=== PATIENT | male | born 1980 | race Caucasian/White ===

== ENCOUNTER 2016-12-02 17:34 | Emergency (ER) | payer MEDICAID ==
[2016-12-02] MEDS ORDERED: RIVAROXABAN 15 MG TABLET PO STA (19:32)
--- NOTE | 2016-12-02 19:45 | ED Physician Documentation ---
History of Present Illness - Stated complaint Stated Complaint: R LEG PX - Chief complaint Chief Complaint: Ext Problem - History obtained from History obtained from: Patient, Family - History of Present Illness Timing: How many weeks ago (2-3) Pain level max: 5 Pain level now: 5 - Additonal information Additional information: States relapsed a few weeks ago and was using heroin. Has not used for a few weeks. 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 Patient now has increased swelling and pain to the right lower extremity. This is been present for 2-3 weeks. Nothing makes it better. Worse with movement. Review of Systems Constitutional: denies: Fever Nose: denies: Rhinorrhea / runny nose, Congestion Throat: denies: Sore throat Cardiac: denies: Chest pain / pressure, Palpitations Respiratory: denies: Cough GI: denies: Abdominal Pain, Nausea, Vomiting, Diarrhea, Hematemesis, Bloody / black stool Skin: denies: Rash Musculoskeletal: denies: Neck pain, Back pain Neurologic: denies: Headache PD PAST MEDICAL HISTORY - Past Medical History Past Medical History: Yes Cardiovascular: None Respiratory: None Neuro: None Endocrine/Autoimmune: None GI: None : None HEENT: None Psych: Depression Musculoskeletal: None Derm: None - Past Surgical History Past Surgical History: Yes Ortho: Rotator cuff repair - Present Medications Home Medications: Ambulatory Orders Medication Instructions Recorded Confirmed Methadone 70 mg PO DAILY 12/02/16 12/02/16 Rivaroxaban [Xarelto] 1 each PO ONCE #1 tab.ds.pk 12/02/16 - Allergies Allergies/Adverse Reactions: Allergies Allergy/AdvReac Type Severity Reaction Status Date / Time No Known Drug Allergies Allergy Verified 06/27/16 21:39 - Social History Does the pt smoke?: Yes Smoking Status: Current every day smoker Does the pt drink ETOH?: No Does the pt have substance abuse?: Yes - Immunizations Immunizations are current?: No - POLST Patient has POLST: No PD ED PE NORMAL - Vitals Vital signs reviewed: Yes - General General: Alert and oriented X 3, No acute distress - HEENT HEENT: Moist mucous membranes - Neck Neck: Supple, no meningeal sign - Cardiac Cardiac: RRR, Strong equal pulses - Respiratory Respiratory: No respiratory distress, Clear bilaterally - Abdomen Abdomen: Soft, Non tender - Derm Derm: Warm and dry - Extremities Extremities: Other (Diffuse swelling to the right lower extremity. Significantly swollen compared to the left. No erythema. No warmth. No skin changes.) - Neuro Neuro: Alert and oriented X 3 Results - Vitals Vitals: Vital Signs - 24 hr 12/02/16 12/02/16 17:40 19:56 Temperature 37.0 C Heart Rate 107 H 95 Respiratory 20 20 Rate Blood Pressure 126/84 H 137/82 H O2 Saturation 100 97 Oxygen O2 Source Room air - Rads (name of study) Duplex ultrasound right lower extremity Radiology: Prelim report reviewed, EMP read contemporaneously, See rad report ( Extensive occlusive thrombus extending from the right common femoral through the superficial and deep femoral and popliteal veins. ) PD MEDICAL DECISION MAKING - ED course Complexity details: reviewed results, re-evaluated patient, considered differential, d/w patient, d/w family ED course: Patient with an extensive DVT of the right lower extremity. Will start the patient on Xarelto and have him follow-up with his doctor. No chest pain. No hypoxia. No evidence of infection. No fevers. Patient and family were counseled at length regarding the need for close follow-up, risks of bleeding while being on Xarelto without a reversal agent. He had been on Coumadin in the past with Lovenox. He prefers the Xarelto at this time. Patient and family counseled regarding signs and symptoms for which I believe and urgent re- evaluation would be necessary. Patient with good understanding of and agreement to plan and is comfortable going home at this time This document was made in part using voice recognition software. While efforts are made to proofread this document, sound alike and grammatical errors may occur. Departure - Departure Disposition: 01 Home, Self Care Clinical Impression: DVT (deep venous thrombosis) Qualifiers: DVT location: lower extremity Affected thrombotic vein of extremity: unspecified lower extremity distal vein Laterality: right Chronicity: acute Qualified Code(s): I82.4Z1 - Acute embolism and thrombosis of unspecified deep veins of right distal lower extremity Condition: Good Instructions: ED DVT Follow-Up: [facility] [Provider Group] - Within 1 week Prescriptions: Rivaroxaban [Xarelto] 1 each PO ONCE #1 tab.ds.pk Comments: He will be on the Xarelto 15 mg by mouth twice daily for 21 days, then 20 mg by mouth daily. It is important that you follow-up with the [facility] as she will likely need to be on this longer than can be prescribed today. You also will likely need follow-up ultrasounds to ensure that the DVT is improving. Return if you worsen. You also need to be seen if you notice blood in your stool or from the rectum. You also need to be seen right away if you strike your head as even a minor head injury could cause bleeding inside of your brain. As we discussed, the downside of this medication is that there is no specified reversal agent for its anticoagulant effects. Discharge Date/Time: 12/02/16 19:56
[2016-12-02 20:00] VITALS: BP 137/82
--- NOTE | 2016-12-02 20:17 | Ultrasound Report ---
EXAM: RIGHT LOWER EXTREMITY VENOUS ULTRASOUND EXAM DATE: 12/02/2016 06:57 PM. CLINICAL HISTORY: Right lower extremity swelling. COMPARISON: None. TECHNIQUE: Real-time sonographic vascular imaging was performed by the repairer resistance welding machines through the lower extremity utilizing both color-flow and Doppler spectral analysis. Multiple insurance sales representative static nandini ges were saved for review. FINDINGS: Common Femoral Vein (CFV): Occlusive thrombus. CFV-GSV Junction: Occlusive thrombus. Greater saphenous vein appears thrombosed. Profunda Femoral Vein (PFV): Occlusive thrombus. Femoral Vein (FV) Prox: Occlusive thrombus. Femoral Vein (FV) Mid: Occlusive thrombus. Femoral Vein (FV) Dist: Occlusive thrombus. Popliteal Vein: Occlusive thrombus. Posterior Tibial Veins: Normal. Peroneal Veins: Normal. Contralateral Side CFV: Normal. Other: None. IMPRESSION: Extensive occlusive thrombus extending from the right common femoral through the superficial and deep femoral and popliteal veins. RADIA The above critical findings were discussed with rey Aguiar by Dr. Flory Frost at 19:25 hrs on 12/02/16. Referring Provider Line: [phone] SITE ID: [id number]
== END 2016-12-02 19:56 | disposition home or self-care (01) ==
LOC: ED 17:34
DX: I82.411 Acute embolism and thrombosis of right femoral vein (principal); I82.431 Acute embolism and thrombosis of right popliteal vein; Z86.718 Personal history of other venous thrombosis and embolism; F11.10 Opioid abuse, uncomplicated; F17.200 Nicotine dependence, unspecified, uncomplicated
CPT/HCPCS: 93971; 99283; 99284; A9270

== ENCOUNTER 2017-07-12 16:16 | Emergency (ER) | payer MEDICAID ==
[2017-07-12] MEDS ORDERED: RIVAROXABAN 15 MG TABLET PO STA (18:33)
--- NOTE | 2017-07-12 18:39 | ED Physician Documentation ---
History of Present Illness - Stated complaint Stated Complaint: LEG PX - Chief complaint Chief Complaint: Ext Problem - History obtained from History obtained from: Patient - History of Present Illness Timing: Other (6 months) Pain level max: 3 Pain level now: 3 Improved by: nothing Worsened by: walking - Additonal information Additional information: Patient is a 37-year-old male who presents to the emergency department with continued left lower extremity pain and swelling. He was diagnosed with a DVT in December of this last year, lost insurance and was unable to continue his anticoagulation. He has now regained insurance and is looking to be restarted on anticoagulation. Does have a primary care provider now. Review of Systems Constitutional: denies: Fever, Chills Cardiac: denies: Chest pain / pressure, Palpitations Respiratory: denies: Dyspnea, Cough Musculoskeletal: denies: Neck pain, Back pain Neurologic: denies: Headache PD PAST MEDICAL HISTORY - Past Medical History Cardiovascular: None Respiratory: None Neuro: None Endocrine/Autoimmune: None GI: None : None HEENT: None Psych: Depression Musculoskeletal: None Derm: None - Past Surgical History Past Surgical History: Yes Ortho: Rotator cuff repair - Present Medications Home Medications: Ambulatory Orders Medication Instructions Recorded Confirmed Methadone 70 mg PO DAILY 12/02/16 07/12/17 Rivaroxaban [Xarelto] 1 each PO ONCE #1 tab.ds.pk 12/02/16 Rivaroxaban [Xarelto] 15 mg PO BID #42 tablet 07/12/17 Rivaroxaban [Xarelto] 20 mg PO DAILY #30 tablet 07/12/17 - Allergies Allergies/Adverse Reactions: Allergies Allergy/AdvReac Type Severity Reaction Status Date / Time No Known Drug Allergies Allergy Verified 07/12/17 16:31 - Social History Does the pt smoke?: Yes Smoking Status: Current every day smoker Does the pt drink ETOH?: No Does the pt have substance abuse?: Yes - Immunizations Immunizations are current?: No - POLST Patient has POLST: No PD ED PE NORMAL - Vitals Vital signs reviewed: Yes - General General: Alert and oriented X 3, No acute distress - Neck Neck: Supple, no meningeal sign - Cardiac Cardiac: RRR - Respiratory Respiratory: No respiratory distress, Clear bilaterally - Abdomen Abdomen: Soft, Non tender, Non distended - Derm Derm: Warm and dry - Extremities Extremities: Other (TTP diffusely over the LLE. Mild swelling. NVI. No skin changes. ) - Neuro Neuro: Alert and oriented X 3 - Psych Psych: Normal mood, Normal affect Results - Vitals Vitals: Vital Signs - 24 hr 07/12/17 07/12/17 16:28 18:47 Temperature 36.5 C Heart Rate 94 72 Respiratory 16 18 Rate Blood Pressure 98/67 118/88 H O2 Saturation 99 97 Oxygen O2 Source Room air - Rads (name of study) LLE duplex US Radiology: Prelim report reviewed, EMP read contemporaneously, See rad report ( Extensive near occlusive thrombus involving the left external iliac, superficial femoral, common femoral and popliteal veins. Poor visualization of the posterior tibial and peroneal veins. Profunda and greater saphenous veins are either not seen or poorly seen. ) PD MEDICAL DECISION MAKING - ED course Complexity details: reviewed results, re-evaluated patient, considered differential, d/w patient ED course: Patient is a 37-year-old male who presents the emergency department with a recurrent left lower extremity DVT. Will start him back on Xarelto. No evidence of pulmonary embolus. No evidence of infection. Patient counseled regarding signs and symptoms for which I believe and urgent re-evaluation would be necessary. Patient with good understanding of and agreement to plan and is comfortable going home at this time This document was made in part using voice recognition software. While efforts are made to proofread this document, sound alike and grammatical errors may occur. Departure - Departure Disposition: 01 Home, Self Care Clinical Impression: DVT (deep venous thrombosis) Qualifiers: DVT location: lower extremity Affected thrombotic vein of extremity: femoral Chronicity: chronic Laterality: left Qualified Code(s): I82.512 - Chronic embolism and thrombosis of left femoral vein Condition: Good Instructions: ED DVT Follow-Up: Jeniffer Luna ARNP [Primary Care Provider] - Within 1 week Prescriptions: Rivaroxaban [Xarelto] 15 mg PO BID #42 tablet Rivaroxaban [Xarelto] 20 mg PO DAILY #30 tablet Comments: You will likely need to be on xarelto for at least 6 months. The exact length will be up to your doctor. Return if you worsen, hit your head or are involved in any trauma as your are at higher risk for bleeding complications. Discharge Date/Time: 07/12/17 18:48
[2017-07-12 18:48] VITALS: BP 118/88
--- NOTE | 2017-07-12 18:56 | Ultrasound Preliminary Report ---
Exam: US DUPLEX EXT VEINS LEFT IMPRESSION: 1. Extensive near occlusive thrombus involving the left external and common superficial femoral, comm on femoral and popliteal veins. 2. Poor visualization of the posterior tibial and peroneal veins. Profunda and greater saphenous vein s are not seen or poorly seen. RADIA The above critical findings were discussed with Cosme by Dr. Flory Frost at 18:54 hrs on 07/12. SITE ID: [id number]
--- NOTE | 2017-07-12 19:20 | Ultrasound Report ---
EXAM: LEFT LOWER EXTREMITY VENOUS ULTRASOUND EXAM DATE: 07/12/2017 06:30 PM. CLINICAL HISTORY: LLE swelling, pain, history of DVT. COMPARISON: None. TECHNIQUE: Real-time sonographic vascular imaging was performed by the fur designer through the lower extremity utilizing both color-flow and Doppler spectral analysis. Multiple commercial sales representative static nandini ges were saved for review. FINDINGS: Common Femoral Vein (CFV): Occlusive thrombus. CFV-GSV Junction: No extension of thrombus into the greater saphenous vein noted. Profunda Femoral Vein (PFV): Not seen. Femoral Vein (FV) Prox: Near occlusive thrombus. Femoral Vein (FV) Mid: Near occlusive thrombus. Femoral Vein (FV) Dist: Near occlusive thrombus. Popliteal Vein: Near occlusive thrombus. Posterior Tibial Veins: Poorly seen. Peroneal Veins: Poorly seen. Contralateral Side CFV: Normal. Other: Left common iliac vein is obscured by bowel gas. IVC is not seen well. Near occlusive thrombus of the left external iliac vein. IMPRESSION: 1. Extensive near occlusive thrombus involving the left external iliac, superficial femoral, common f emoral and popliteal veins. 2. Poor visualization of the posterior tibial and peroneal veins. Profunda and greater saphenous vein s are either not seen or poorly seen. RADIA The above critical findings were discussed with Cosme by Dr. Flory Frost at 18:54 hrs on 07/12. Referring Provider Line: [phone] SITE ID: [id number]
== END 2017-07-12 18:48 | disposition home or self-care (01) ==
LOC: ED 16:16
DX: I82.512 Chronic embolism and thrombosis of left femoral vein (principal); I82.522 Chronic embolism and thrombosis of left iliac vein; I82.532 Chronic embolism and thrombosis of left popliteal vein; Z79.01 Long term (current) use of anticoagulants; F17.200 Nicotine dependence, unspecified, uncomplicated
CPT/HCPCS: 93971; 99283; A9270

== ENCOUNTER 2020-02-18 21:25 | Emergency (ER) | payer MEDICAID ==
[2020-02-18 21:49] LABS: BILIRUBIN,URINE NEGATIVE (NEGATIVE); CLARITY,URINE CLEAR (CLEAR); GLUCOSE, URINE (UA) NEGATIVE (NEGATIVE); KETONES,URINE (UA) NEGATIVE (NEGATIVE); LEUKOCYTE ESTERASE, URINE NEGATIVE (NEGATIVE); NITRITE,URINE NEGATIVE (NEGATIVE); OCCULT BLOOD,URINE TRACE-INTA (NEGATIVE); PROTEIN,URINE NEGATIVE (NEGATIVE); UROBILINOGEN,URINE 0.2 (NORMAL) E.U./dL (NORMAL)
--- NOTE | 2020-02-18 23:05 | ED Physician Documentation ---
History of Present Illness - Stated complaint Stated Complaint: MALE - Chief complaint Chief Complaint: General - History obtained from History obtained from: Patient - History of Present Illness Timing: How many days ago (2-3) Improved by: nothing Worsened by: urinating - Additonal information Additional information: c/o 2-3 days of burning dysuria, penile discharge. also has milder burning pain even when not urinating, suprapubic Review of Systems Constitutional: denies: Fever : reports: Dysuria, Discharge PD PAST MEDICAL HISTORY - Past Medical History Past Medical History: No Cardiovascular: None Respiratory: None Neuro: None Endocrine/Autoimmune: None GI: None : None HEENT: None Psych: Depression Musculoskeletal: None Derm: None - Past Surgical History Past Surgical History: Yes Ortho: Rotator cuff repair - Present Medications Home Medications: Ambulatory Orders Medication Instructions Recorded Confirmed Methadone 70 mg PO DAILY 12/02/16 07/12/17 Rivaroxaban [Xarelto] 1 each PO ONCE #1 tab.ds.pk 12/02/16 Rivaroxaban [Xarelto] 15 mg PO BID #42 tablet 07/12/17 Rivaroxaban [Xarelto] 20 mg PO DAILY #30 tablet 07/12/17 - Allergies Allergies/Adverse Reactions: Allergies Allergy/AdvReac Type Severity Reaction Status Date / Time No Known Drug Allergies Allergy Verified 02/18/20 21:37 - Social History Does the pt smoke?: No Smoking Status: Never smoker Does the pt drink ETOH?: No Does the pt have substance abuse?: Yes - Immunizations Immunizations are current?: No - POLST Patient has POLST: No PD ED PE NORMAL - Vitals Vital signs reviewed: Yes - General General: Alert and oriented X 3, No acute distress, Well developed/nourished - Abdomen Abdomen: Soft, Non tender - Back Back: No CVA TTP Results - Vitals Vitals: Oxygen O2 Source Room air - Labs Labs: Laboratory Tests 02/18/20 02/18/20 21:35 21:35 Urine Color DARK YELLOW Urine Clarity CLEAR Urine pH 6.0 Ur Specific [place] 1.025 Urine Protein NEGATIVE Urine Glucose (UA) NEGATIVE Urine Ketones NEGATIVE Urine Occult Blood TRACE-INTA Urine Nitrite NEGATIVE Urine Bilirubin NEGATIVE Urine Urobilinogen 0.2 (NORMAL) Ur Leukocyte Esterase NEGATIVE Ur Microscopic Review NOT INDICATED Urine Culture Comments NOT INDICATED Chlam trachomat DNA PCR NEGATIVE N.gonorrhoeae DNA (PCR) NEGATIVE T. vaginalis (PCR) NEGATIVE PD MEDICAL DECISION MAKING - ED course Complexity details: reviewed results, considered differential, d/w patient ED course: c/o dysuria and penile discharge x 2-3 days. he feels these symptoms are similar to previous STD and prefers empiric treatment at this time. Departure - Departure Disposition: 01 Home, Self Care Clinical Impression: Urethritis Condition: Good Instructions: ED Urethritis Infec Vs Inflam Male Discharge Date/Time: 02/18/20 23:44
[2020-02-18] MEDS ORDERED: AZITHROMYCIN 250 MG TABLET PO STA (23:14)
[2020-02-18] MEDS ORDERED: LIDOCAINE 1% 2 ML VIAL MC ONE (23:14)
[2020-02-18] MEDS ORDERED: cefTRIAXone 250 MG VIAL IM STA (23:14)
[2020-02-18 23:33] VITALS: BP 154/95
[2020-02-19 19:53] LABS: TRICHOMONAS VAGINALIS DNA NEGATIVE (NEGATIVE)
== END 2020-02-18 23:44 | disposition home or self-care (01) ==
LOC: ED 21:25
DX: N34.2 Other urethritis (principal)
CPT/HCPCS: 81003; 87491; 87591; 87661; 96372; 99283; A9270; 81001; 87086

== ENCOUNTER 2020-03-12 12:50 | Outpatient (CLI) | payer MEDICAID ==
[2020-03-12 15:19] LABS: BILIRUBIN,URINE NEGATIVE (NEGATIVE); GLUCOSE, URINE (UA) NEGATIVE (NEGATIVE); KETONES,URINE (UA) NEGATIVE (NEGATIVE); LEUKOCYTE ESTERASE, URINE NEGATIVE (NEGATIVE); NITRITE,URINE NEGATIVE (NEGATIVE); OCCULT BLOOD,URINE NEGATIVE (NEGATIVE); PH,URINE 6.5 PH (5.0-7.5); PROTEIN,URINE NEGATIVE (NEGATIVE); UROBILINOGEN,URINE 0.2 (NORMAL) E.U./dL (NORMAL)
[2020-03-12 15:26] LABS: AMORPHOUS SEDIMENT,UR Marked /LPF; BACTERIA,URINE None Seen /HPF (None Seen); CLARITY,URINE CLOUDY (CLEAR); RBC,URINE None Seen /HPF (0-5); SQUAMOUS EPITHELIAL CELL,UR NONE SEEN (<= Few)
== END 2020-03-12 23:59 | disposition home or self-care (01) ==
LOC: LAB.R 12:50
PROVIDERS: ATTEND Physician Assistant Medical
DX: N34.1 Nonspecific urethritis (principal); R30.0 Dysuria
CPT/HCPCS: 81001; 87086

== ENCOUNTER 2020-03-17 07:00 | Outpatient (CLI) | payer MEDICAID | END 2020-03-17 23:59 | disposition home or self-care (01) | LOC: LAB.R 07:00 | PROVIDERS: ATTEND Physician Assistant | DX: N34.1 Nonspecific urethritis (principal); R30.0 Dysuria | CPT/HCPCS: 87491; 87591; 87661 ==

== ENCOUNTER 2020-05-01 00:03 | Observation (INO) | payer MEDICAID ==
[2020-05-01] MEDS ORDERED: ONDANSETRON 4 MG/2 ML VIAL IVP STA (00:22)
[2020-05-01] MEDS ORDERED: FOLIC ACID INJ 1 MG, THIAMINE INJ 100 MG, MAGNESIUM SULFATE 2 GM, MULTIVITAMIN 10 ML in... IV STA ×5 (00:22)
--- NOTE | 2020-05-01 00:24 | ED Physician Documentation ---
History of Present Illness - Stated complaint Stated Complaint: DETOX ETOH/VOMITING - Chief complaint Chief Complaint: Abd Pain - History obtained from History obtained from: Patient - Additonal information Additional information: Patient comes emergency department complaining of vomiting after quitting drinking about 5 hours ago. Patient states he was starting to feel nauseated and has not been able to hold anything down since that time. Patient states that he did wish to quit drinking, but that he is concerned because his fingers are cramping up and he has not been able to stop vomiting. Patient states he normally drinks about a gallon of hard liquor every day and has been doing so for the last year. Patient states he is no longer abusing heroin or any other opioids/narcotics. He states he is otherwise healthy as far as he knows. No fever or chills. No abdominal pain. No other complaints at this time. Review of Systems Ten Systems: 10 systems reviewed and negative Constitutional: reports: Reviewed and negative Eyes: reports: Reviewed and negative Ears: reports: Reviewed and negative Nose: reports: Reviewed and negative Throat: reports: Reviewed and negative Cardiac: reports: Reviewed and negative Respiratory: reports: Reviewed and negative GI: reports: Nausea, Vomiting : reports: Reviewed and negative Skin: reports: Reviewed and negative Musculoskeletal: reports: Reviewed and negative Neurologic: reports: Reviewed and negative Psychiatric: reports: Reviewed and negative Endocrine: reports: Reviewed and negative Immunocompromised: reports: Reviewed and negative PD PAST MEDICAL HISTORY - Past Medical History Cardiovascular: None Respiratory: None Neuro: None Endocrine/Autoimmune: None GI: None : None HEENT: None Psych: Depression Musculoskeletal: None Derm: None - Past Surgical History Past Surgical History: Yes Ortho: Rotator cuff repair - Present Medications Home Medications: Ambulatory Orders Medication Instructions Recorded Confirmed Bupropion HCl [Bupropion Xl] 300 mg PO DAILY 05/01/20 05/01/20 Ibuprofen [Ibu-200] 2 - 3 tab PO Q6H PRN 05/01/20 05/01/20 LORazepam [Ativan] 1 mg PO TID PRN #9 tablet 05/02/20 Pnv No.95/Ferrous Fum/Folic AC 1 each PO DAILY #30 tablet 05/02/20 [ Formula] Thiamine [Vitamin B-1] 100 mg PO DAILY #30 tablet 05/02/20 - Allergies Allergies/Adverse Reactions: Allergies Allergy/AdvReac Type Severity Reaction Status Date / Time No Known Drug Allergies Allergy Verified 05/01/20 00:15 - Social History Does the pt smoke?: No Smoking Status: Never smoker Does the pt drink ETOH?: No Does the pt have substance abuse?: Yes - Immunizations Immunizations are current?: No - POLST Patient has POLST: No PD ED PE NORMAL - Vitals Vital signs reviewed: Yes - General General: Alert and oriented X 3, Well developed/nourished, Other (Patient is anxious and appears uncomfortable, otherwise no apparent distress) - HEENT HEENT: Atraumatic, PERRL, EOMI, Moist mucous membranes - Neck Neck: Supple, no meningeal sign - Cardiac Cardiac: RRR, No murmur, Strong equal pulses - Respiratory Respiratory: No respiratory distress, Clear bilaterally - Abdomen Abdomen: Soft, Non tender, Non distended - Derm Derm: Normal color, No rash, Other (Mild diaphoresis) - Extremities Extremities: No deformity, No edema, No calf tenderness / cord - Neuro Neuro: Alert and oriented X 3, Other (Not clinically intoxicated; grossly normal) - Psych Psych: Normal mood, Normal affect Results - Vitals Vitals: Oxygen O2 Source Room air - Labs Labs: Laboratory Tests 05/01/20 05/01/20 00:35 00:59 WBC 6.6 RBC 4.89 Hgb 15.0 Hct 43.9 MCV 89.8 MCH 30.7 MCHC 34.2 RDW 16.4 H Plt Count 339 MPV 9.4 Neut # (Auto) 5.3 Lymph # (Auto) 0.7 L [place] # (Auto) 0.5 Eos # (Auto) 0.1 Baso # (Auto) 0.1 Absolute Nucleated RBC 0.00 Nucleated RBC % 0.0 Sodium 136 Potassium 3.1 L Chloride 95 L Carbon Dioxide 24 Anion Gap 17.0 H BUN 6 Creatinine 0.7 Estimated GFR (MDRD) 125 Glucose 110 H Calcium 8.7 Total Bilirubin 1.7 H AST 108 H ALT 55 Alkaline Phosphatase 128 H Total Protein 7.6 Albumin 4.1 Globulin 3.5 Albumin/Globulin Ratio 1.2 Lipase 49 Ethyl Alcohol 25.8 PD MEDICAL DECISION MAKING - ED course Complexity details: reviewed results, re-evaluated patient, considered differential, d/w patient ED course: The patient was given a liter of banana bag and a dose of Zofran initially. He was worked up with labs, including EtOH level. The pt's EtOH level was low, and the pt's CIWA score was increasing steadily, now to 20. Pt was treated with Ativan, but continued to have a CIWA of 17, so he was then given phenobarbital 260 mg. This did improve the pt's sx, but he was still tachycardic and began vomiting again, and I felt that he was not going to be able to go home in this condition, especially given his heavy alcohol abuse and risk of severe withdrawal. I spoke with Dr. Cardoza, who was on-call for hospitalist service, and he did agree to admit the pt to his service. Departure - Departure Disposition: ED Place in Observation Clinical Impression: Alcohol withdrawal Qualifiers: Complication of substance-induced condition: with unspecified complication Qualified Code(s): F10.239 - Alcohol dependence with withdrawal, unspecified Condition: Fair Discharge Date/Time: 05/01/20 04:56
[2020-05-01 00:47] LABS: BASOPHILS # (AUTO) 0.1 10^3/uL (0.0-0.1); BASOPHILS % (AUTO) 1.2 %; EOSINOPHILS # (AUTO) 0.1 10^3/uL (0.0-0.7); EOSINOPHILS % (AUTO) 1.8 %; LYMPHOCYTES # (AUTO) 0.7 10^3/uL (1.5-3.5); MEAN CORPUSCULAR HEMOGLOBIN 30.7 pg (27.0-31.0); MEAN CORPUSCULAR HGB CONC 34.2 g/dL (32.0-36.0); MEAN CORPUSCULAR VOLUME 89.8 fL (80.0-94.0); MEAN PLATELET VOLUME 9.4 fL (7.4-11.4); MONOCYTES # (AUTO) 0.5 10^3/uL (0.0-1.0); MONOCYTES % (AUTO) 7.2 %; NEUTROPHILS # (AUTO) 5.3 10^3/uL (1.5-6.6); NEUTROPHILS % (AUTO) 79.5 %; PLT - PLATELET COUNT 339 10^3/uL (130-450); RED BLOOD COUNT 4.89 10^6/uL (4.70-6.10); RED CELL DISTRIBUTION WIDTH 16.4 % (12.0-15.0); WHITE BLOOD COUNT 6.6 x10^3/uL (4.8-10.8)
[2020-05-01] MEDS ORDERED: MAGNESIUM SULFATE 1 GM/2 ML VIAL ONE (00:47)
[2020-05-01] MEDS ORDERED: THIAMINE 100 MG/1 ML 2 ML MDV ONE (00:47)
[2020-05-01] MEDS ORDERED: FOLIC ACID 5 MG/1 ML 10ML MDV ONE (00:47)
[2020-05-01 01:14] LABS: ALBUMIN 4.1 g/dL (3.2-5.5); ALBUMIN/GLOBULIN RATIO 1.2 (1.0-2.2); BILIRUBIN,TOTAL 1.7 mg/dL (0.2-1.0); CALCIUM 8.7 mg/dL (8.5-10.3); CREATININE 0.7 mg/dL (0.6-1.2); TOTAL PROTEIN 7.6 g/dL (6.7-8.2)
[2020-05-01] MEDS ORDERED: LORazepam 2 MG/ML VIAL IVP STA ×2 (01:23→03:42)
[2020-05-01] MEDS ORDERED: LORazepam 2 MG/ML VIAL ONE (01:34)
[2020-05-01] MEDS ORDERED: PROMETHAZINE INJ 25 MG in SODIUM CHLORIDE 0.9% 50 ML IV STA (02:26)
[2020-05-01] MEDS ORDERED: PHENobarbital 65 MG/ML VIAL IV STA (02:26)
[2020-05-01] MEDS ORDERED: SODIUM CHLORIDE 0.9% 1,000 ML IV STA (02:27)
[2020-05-01] MEDS ORDERED: PROMETHAZINE 25 MG/1 ML VIAL ONE (02:43)
[2020-05-01] MEDS ORDERED: PROCHLORPERAZINE 10 MG/2 ML VIAL IVP PRN (03:58)
[2020-05-01] MEDS ORDERED: ACETAMINOPHEN 325 MG TABLET PO PRN (03:58)
--- NOTE | 2020-05-01 04:07 | HISTORY & PHYSICAL EXAMINATION ---
Chief Complaint - Chief Complaint Chief Complaint: Alcohol History of Present Illness - Admitted From Admitted From:: Home - History Obtained From Records Reviewed: Yes History obtained from: Patient, ER Physician, EMR - History of Present Illness HPI Comment/Other: This is a 40-year-old male with a past medical history significant for DVT previously treated with Xarelto, alcohol abuse who presents today due to concerns for alcohol withdrawal. He states he has been drinking daily for the past 10 years and over the past 3 years is making 1/5 of liquor every night. For the past few months he has increased this to half a gallon of liquor every day. He wants to quit and so he has been attempting to taper himself off over the past few weeks but has developed nausea and vomiting. He became concerned last night when he thought he might be having a stroke as his hands became contracted for a brief period of time. His last alcoholic beverage was around 8 PM last night. He vomited immediately after. He reports no blood. He denies any abdominal pain, fevers. He does report some chills. He complains of a sore throat due to the retching. He complains of feeling tremulous. He would like to quit alcohol. He currently does not take any medications. He states he completed treatment of his Xarelto for the DVT. He was followed by hematology on outpatient basis at [facility] in [place]. He reports no chest pain, dyspnea. He does also complain of a rash over his upper extremities that began a few days ago. He denies any new medications. He thinks it may be the new laundry detergent his sister used when she did laundry a few days ago. In the emergency department, he was initially found to be afebrile with temperature of 36.3 C. He was initially tachycardic with a heart rate of 121. This improved to the 90s after IV fluids. His blood pressure is elevated at 152/111. He was not tachypneic and was saturating well on room air. Labs are significant for potassium of 3.1, total bilirubin 1.7, AST of 108. His alcohol level was 25.8. He was given phenobarbital, multiple doses of Ativan, and a banana bag in the emergency department. Due to an elevated CIWA score and ongoing nausea and vomiting, medicine was consulted for admission. History - Past Medical History Cardiovascular: reports: Deep vein thrombosis Respiratory: reports: None Neuro: reports: None Endocrine/Autoimmune: reports: None GI: reports: None : reports: None HEENT: reports: None Psych: reports: Depression Musculoskeletal: reports: None Derm: reports: None MRSA Hx?: No - Past Surgical History Ortho: reports: Rotator cuff repair (Right shoulder) - Family & Social History Family History Comment/Other: Reports his father has diabetes. His mother is healthy. Living arrangement: At home Living Situation: With family Social History Notes: He lives at home with his parents. He has been doing alcohol on a daily basis for the past 10 years. He reports a prior history of s ignificant marijuana use but denies this at this time. He reports no heroin, methamphetamine, cocaine use. 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 - POLST Patient has POLST: No Meds/Allgy - Allergies Allergies/Adverse Reactions: Allergies Allergy/AdvReac Type Severity Reaction Status Date / Time No Known Drug Allergies Allergy Verified 05/01/20 00:15 Review of Systems - Constitutional Constitutional: reports: Fatigue, Chills, Malaise, Weakness, Poor appetite. denies: Fever - Eyes Eyes: denies: Blurred vision - Ears, Nose & Throat Ears, Nose & Throat: reports: Sore throat, Hoarseness. denies: Nasal discharge, Postnasal drainage - Cardiovascular Cariovascular: reports: Lightheadedness. denies: Chest pain, Edema, Exertional dyspnea, Decr. exercise tolerance - Respiratory Respiratory: denies: Cough, SOB at rest, SOB with exertion - Gastrointestinal Gastrointestinal: reports: Nausea, Vomiting, Reflux/heartburn, Poor appetite. denies: Abdominal pain, Black stools, Bloody stools, Coffee grounds emesis - Genitourinary Genitourinary: denies: Dysuria, Frequency, Hematuria - Musculoskeletal Musculoskeletal: reports: Muscle weakness. denies: Muscle pain - Integumentary Integumentary: reports: Rash - Neurological Neurological: reports: General weakness, Dizziness. denies: Focal weakness - Hematologic/Lymphatic Hematologic/Lymphatic: reports: Blood clots. denies: Bleeding tendencies - All Other Systems All Other Systems: reports: Reviewed and negative Prior Level of Functionality: He is independent with ADLs. Exam - Vital Signs Reviewed Vital Signs: Yes Vital Signs: Vital Signs x48h Temp Pulse Resp BP Pulse Ox 10/16/20 03:03 100 16 124/85 H 96 05/01/20 01:38 88 16 143/99 H 95 05/01/20 00:51 90 20 154/97 H 97 05/01/20 00:05 36.3 C L 121 H 20 152/111 H 97 - Physical Exam General Appearance: positive: Alert, Mild distress Eyes Bilateral: positive: Normal inspection, Conjunctivae nml ENT: positive: ENT inspection nml, Pharynx nml. negative: Pharyngeal erythema Neck: positive: Nml inspection Respiratory: positive: No respiratory distress. negative: Wheezes, Rales Cardiovascular: positive: No murmur, Tachycardia. negative: Bradycardia, Systolic murmur Abdomen: positive: Non-tender, No distention. negative: Tenderness, Guarding, Rebound Skin: positive: Warm, Dry, Skin rash (He has a blanching maculopapular rash located over his chest, abdomen and back.). negative: No rash Extremities: positive: No pedal edema Neurologic/Psychiatric: positive: Oriented x3, Motor nml, Other (He has a mild tremor in both of his upper extremities.). negative: Disoriented to person, Disoriented to place, Disoriented to time Conclusion/Plan - Problem List (1) Alcohol withdrawal Conclusion/Plan: He does have evidence of withdrawal given he is tremulous, tachycardic, hypertensive. He is not diaphoretic. His URI has improved after receiving phenobarbital and Ativan in the emergency department. His last drink was yesterday evening. Given his gastritis and inconsistent ability to take oral intake, we will place him in observation for continued treatment of his alcohol withdrawal. Continue with Ativan as needed. [facility] protocol. Banana bag. So cial work consult. Qualifiers: Complication of substance-induced condition: with unspecified complication Qualified Code(s): F10.239 - Alcohol dependence with withdrawal, unspecified (2) Alcoholic gastritis Conclusion/Plan: This is likely secondary to his alcohol abuse. He continues have some nausea and vomiting and has required multiple antiemetics emergency department. We will place him on a clear liquid diet and Protonix IV. Continue with IV fluids. No need for endoscopy at this time unless he develops hematemesis. Qualifiers: Chronicity: acute Gastritis bleeding: without bleeding Qualified Code(s): K29.20 - Alcoholic gastritis without bleeding (3) Rash Conclusion/Plan: The etiology of this is not clear at this time. He does have a maculopapular rash over his upper torso. He reports no new medications. This may be due to the use of a new detergent. At this time, we will observe. Benadryl as needed for itching. (4) History of DVT (deep vein thrombosis) Conclusion/Plan: He has no evidence of edema or pain in his bilateral extremities. He completed therapy with Xarelto. Continue outpatient follow-up. Lovenox for DVT prophylaxis. (5) Transaminitis Conclusion/Plan: Secondary to his alcohol abuse. His AST is greater than ALT. Monitor LFTs. No role for steroids. - Lab Results Lab results reviewed: Yes Fish Bones: 05/01/20 00:35 05/01/20 00:59 Core Measures - Anticipated LOS I expect patient to be DC'd or transferred within 96 hours.: Yes - Issues Hospital Issues and Management Plan: 40-year-old male with history of alcohol abuse presents for alcohol withdrawal and gastritis. Will place in observation for Raúl wilkerson. Will consult social work to discuss alcohol cessation options - DVT/VTE - Prophylaxis VTE/DVT Device ordered at admit?: Yes VTE/DVT Prophylaxis med ordered at admit?: Yes
[2020-05-01] MEDS ORDERED: SODIUM CHLORIDE 0.9% 500 ML IV PRN (05:41)
[2020-05-01] MEDS ORDERED: SODIUM CHLORIDE 0.9% 1,000 ML IV ONE (05:42)
[2020-05-01] MEDS: SODIUM CHLORIDE FLUSH 0.9% 10 ML SYRINGE IVP PRN ×2 (05:46→18:52)
[2020-05-01] MEDS: ONDANSETRON 4 MG/2 ML VIAL IVP PRN ×3 (05:47→21:30)
[2020-05-01] MEDS: LORazepam 2 MG/ML VIAL IVP PRN ×7 (05:47→23:01)
[2020-05-01] MEDS: POTASSIUM CHLOR 10 MEQ/100 ML 10 MEQ/100 ML BAG IV SCH ×4 (05:48→11:11)
[2020-05-01] MEDS ORDERED: diphenhydrAMINE 25 MG CAPSULE PO PRN (07:08)
[2020-05-01] MEDS: ENOXAPARIN 40 MG/0.4 ML SYRINGE SUBQ SCH (08:16)
[2020-05-01] MEDS: PANTOPRAZOLE 40 MG VIAL IVP SCH (08:16)
[2020-05-01] MEDS: SODIUM CHLORIDE FLUSH 0.9% 10 ML SYRINGE IVP SCH ×2 (08:17→15:46)
[2020-05-01] MEDS ORDERED: MULTIVITAMIN 10 ML, THIAMINE INJ 100 MG, FOLIC ACID INJ 1 MG in SODIUM CHLORIDE 0.9% 1,... IV SCH (09:00)
[2020-05-01 15:50] LABS: MUDS CUTOFF CONCENTRATIONS CUTOFF CONC BELOW:
[2020-05-01 16:05] LABS: AMPHETAMINE SCREEN,URINE NEGATIVE (NEGATIVE); BENZODIAZEPINES SCREEN, URINE POSITIVE (NEGATIVE); COCAINE SCREEN URINE NEGATIVE (NEGATIVE); METHADONE SCREEN, URINE POSITIVE (NEGATIVE); METHAMPHETAMINES SCREEN, URINE NEGATIVE (NEGATIVE); OPIATE SCREEN, URINE NEGATIVE (NEGATIVE); OXYCODONE SCREEN, URINE NEGATIVE (NEGATIVE); PROPOXYPHENE SCREEN, URINE NEGATIVE (NEGATIVE); TRICYCLIC ANTIDEPRESSANT,URINE NEGATIVE (NEGATIVE)
--- NOTE | 2020-05-01 17:13 | PHARMACY PROGRESS NOTE ---
- Best Possible Medication History Admit Date and Time: 05/01/20 0358 Processed by: Pharmacy Medication History completed: Yes Patient Interview: Pt unable to participate Secondary Source(s): Physician records, Pharmacy records As the person ultimately responsible for medication therapy, providers are able to order a medication from an existing home medication list in [facility] via the "Reconcile Routine" prior to Confirmation of that medication by program support clerk. Such practice is discouraged except when the physician, in their clinical judgment, deems that a medical need exists for a medication without regard to previous use.
[2020-05-02] MEDS: LORazepam 2 MG/ML VIAL IVP PRN ×4 (00:11→06:17)
[2020-05-02] MEDS: SODIUM CHLORIDE FLUSH 0.9% 10 ML SYRINGE IVP SCH ×2 (00:12→08:35)
[2020-05-02] MEDS: ONDANSETRON 4 MG/2 ML VIAL IVP PRN (03:41)
[2020-05-02] MEDS: SODIUM CHLORIDE FLUSH 0.9% 10 ML SYRINGE IVP PRN (06:17)
[2020-05-02] MEDS: PANTOPRAZOLE 40 MG VIAL IVP SCH (06:17)
[2020-05-02 08:13] LABS: BASOPHILS # (AUTO) 0.1 10^3/uL (0.0-0.1); BASOPHILS % (AUTO) 1.5 %; EOSINOPHILS # (AUTO) 0.4 10^3/uL (0.0-0.7); EOSINOPHILS % (AUTO) 10.9 %; HGB - HEMOGLOBIN 13.1 g/dL (14.0-18.0); LYMPHOCYTES # (AUTO) 0.8 10^3/uL (1.5-3.5); LYMPHOCYTES % (AUTO) 20.9 %; MEAN CORPUSCULAR HEMOGLOBIN 31.6 pg (27.0-31.0); MEAN CORPUSCULAR HGB CONC 33.4 g/dL (32.0-36.0); MEAN CORPUSCULAR VOLUME 94.7 fL (80.0-94.0); MEAN PLATELET VOLUME 10.2 fL (7.4-11.4); MONOCYTES # (AUTO) 0.3 10^3/uL (0.0-1.0); MONOCYTES % (AUTO) 8.4 %; NEUTROPHILS # (AUTO) 2.3 10^3/uL (1.5-6.6); NEUTROPHILS % (AUTO) 57.8 %; RED BLOOD COUNT 4.14 10^6/uL (4.70-6.10); RED CELL DISTRIBUTION WIDTH 16.1 % (12.0-15.0); WHITE BLOOD COUNT 3.9 x10^3/uL (4.8-10.8)
[2020-05-02 08:28] LABS: PLATELET MORPHOLOGY PLATELET CLUMPING (NORMAL)
[2020-05-02] MEDS: ENOXAPARIN 40 MG/0.4 ML SYRINGE SUBQ SCH (08:35)
[2020-05-02 08:36] VITALS: BP 142/92
--- NOTE | 2020-05-02 08:43 | Discharge Plan ---
Discharge Plan Problem Reviewed?: Yes Disposition: Home, Self Care Condition: Fair Prescriptions: LORazepam [Ativan] 1 mg PO TID PRN #9 tablet PRN Reason: Alcohol Withdrawal Pnv No.95/Ferrous Fum/Folic AC [ Formula] 1 each PO DAILY #30 tablet Thiamine [Vitamin B-1] 100 mg PO DAILY #30 tablet Diet: Regular Activity Restrictions: Activity as Tolerated Shower Restrictions: No Driving Restrictions: Yes (no driving or operating machinery while on ativan) Instruction Topics: ALT, Withdrawal Alcohol What Expect, Addiction Alcohol, Add iction Tx Options, Cirrhosis Health Concerns: You presented to the hospital with alcohol withdrawal. I was unable to be treated in the emergency room because of severe tremors, fast heart rate, anxiety, sweats. As such were placed in the hospital for alcohol withdrawal and received medications called benzodiazepines. The name of that is Ativan. You also received B12 and folate supplementation IV. We have hydrated you with intravenous salt water. Today you feel slightly shaky but would like to go home. You are asking to please be sent home on a little bit of the Ativan to get you through the next 3 days. Plan of Treatment: 1. You state that you will no longer drink. And you are seeking to place yourself in an inpatient rehab facility as soon as 1 will take you. 2. You are asking for Ativan. I am giving you 1 mg 3 times a day as needed for the next 3 days, #9. 3. Please take thiamine 100 mg a day, and a vitamin once a day. Alcohol abuse disrupts the metabolism of liver and red cell making. So we are giving you B12 and folate with these vitamins. 4. Do not drive while taking Ativan. It can alter the sensorium so you must not drive or operate heavy machinery. 5. Please see your primary care provider in follow-up. This is for continuity of care to make sure that your primary care provider knows what is going on with you. Care Goals: 1. To successfully quit drinking altogether 2. To safely get through this episode of withdrawal Assessment: Patient states that he is motivated. He never realized how sick you can get with this. Hopes he never does this again. No Smoking: If you smoke, Please STOP! Call for help. Follow-up with: Santosh Ham MD [Provider Admit Priv/Credential] -
[2020-05-02] MEDS ORDERED: MULTIVITAMIN 10 ML, THIAMINE INJ 100 MG, FOLIC ACID INJ 1 MG in SODIUM CHLORIDE 0.9% 1,... IV SCH (09:00)
[2020-05-02] MEDS ORDERED: polyethylene glycoL 3350 17 GM PACKET PO SCH (09:00)
[2020-05-02] MEDS ORDERED: LORazepam 1 MG TABLET PO STA (09:27)
--- NOTE | 2020-05-02 16:49 | DISCHARGE SUMMARY ---
"Discharge Summary Admit Date: 05/01/20 Discharge Date: 05/02/20 Discharging Provider: Alyssa Chase MD Primary Care Provider: Santosh Ham Code Status: Attempt Resuscitation Condition at Discharge: Fair Discharge Disposition: 01 Home, Self Care - DIAGNOSES Discharge Diagnoses with Status of Each Condition: 1. Alcohol withdrawal 2. Alcoholic gastritis 3. Rash, nonspecific 4. History of DVT 5. Transaminitis 6. Hypokalemia - HPI History of Present Illness: This is a 40-year-old male with a past medical history significant for DVT previously treated with Xarelto, alcohol abuse who presents today due to marylou rns for alcohol withdrawal. He states he has been drinking daily for the past 10 years and over the past 3 years is making 1/5 of liquor every night. For the past few months he has increased this to half a gallon of liquor every day. He wants to quit and so he has been attempting to taper himself off over the past few weeks but has developed nausea and vomiting. He became concerned last night when he thought he might be having a stroke as his hands became contracted for a brief period of time. His last alcoholic beverage was around 8 PM last night. He vomited immediately after. He reports no blood. He denies any abdominal pain, fevers. He does report some chills. He complains of a sore throat due to the retching. He complains of feeling tremulous. He would like to quit alcohol. He currently does not take any medications. He states he completed treatment of his Xarelto for the DVT. He was followed by hematology on outpatient basis at [facility] in [place]. He reports no chest pain, dyspnea. He does also complain of a rash over his upper extremities that began a few days ago. He denies any new medications. He thinks it may be the new laundry detergent his sister used when she did laundry a few days ago. In the emergency department, he was initially found to be afebrile with temperature of 36.3 C. He was initially tachycardic with a heart rate of 121. This improved to the 90s after IV fluids. His blood pressure is elevated at 152/111. He was not tachypneic and was saturating well on room air. Labs are significant for potassium of 3.1, total bilirubin 1.7, AST of 108. His alcohol level was 25.8. He was given phenobarbital, multiple doses of Ativan, and a banana bag in the emergency department. Due to an elevated CIWA score and ongoing nausea and vomiting, medicine was consulted for admission. - Past Medical History Cardiovascular: reports: Deep vein thrombosis Respiratory: reports: None Neuro: reports: None Endocrine/Autoimmune: reports: None GI: reports: None : reports: None HEENT: reports: None Psych: reports: Depression Musculoskeletal: reports: None Derm: reports: None MRSA Hx?: No - Past Surgical History Ortho: reports: Rotator cuff repair (Right shoulder) - CONSULTS | PROCEDURES Procedures: Urine tox ring positive for methadone, barbiturates, benzodiazepines. Alcohol 25.8. - HOSPITAL COURSE Hospital Course: He was placed in observation overnight for alcohol withdrawal and received multivitamins, Ativan, IV fluids, antiemetics. Hypokalemia on admission was treated with p.o. and IV supplementation. By the morning of discharge he was no longer vomiting and able to keep food down. And he no longer wanted to stay. He was still mildly tremulous, shaky, but he was adamant that he really wanted to go home. He shares custody of his son with his and he gets the son on Monday (today is Monday). He would like to get home and things ready. He asked for Ativan to take the edge off and Ativan 1 mg p.o. 3 times daily as needed was prescribed, 9 tablets. Asked to stay on thiamine and folate. Mainly in the form of vitamins. He states that he will no longer drink because he cannot believe how miserable he feels. He will also seek rehab in the next few weeks. Discharge exam has a temperature of 37.1. Pulse 108. I told him he is still tachycardic and still mildly hypertensive at 142/92. I would like him to stay another day. I explained that withdrawal can lead to seizures, severely logan vated blood pressure. He says that he really feels like he wants to go home. Respirations are 18 and unlabored, 98% on room air. Tremulous. Voice still shaking. But he ate a full breakfast, no nausea or vomiting. Lungs are clear, regular rate and rhythm that is tachycardic. And abdomen that has achiness in the right upper quadrant with palpation but no rebound or guarding. Quiet bowel sounds. When he gets up to walk there is no ataxia. He is asked to see his primary care provider in follow-up. Get into rehab as fast as possible. - ALLERGIES Allergies/Adverse Reactions: Allergies Allergy/AdvReac Type Severity Reaction Status Date / Time No Known Drug Allergies Allergy Verified 05/01/20 00:15 - MEDICATIONS Home Medications: Ambulatory Orders Medication Instructions Recorded Confirmed Bupropion HCl [Bupropion Xl] 300 mg PO DAILY 05/01/20 05/01/20 Ibuprofen [Ibu-200] 2 - 3 tab PO Q6H PRN 05/01/20 05/01/20 LORazepam [Ativan] 1 mg PO TID PRN #9 tablet 05/02/20 Pnv No.95/Ferrous Fum/Folic AC 1 each PO DAILY #30 tablet 05/02/20 [ Formula] Thiamine [Vitamin B-1] 100 mg PO DAILY #30 tablet 05/02/20 - LABS Result Diagrams: 05/02/20 08:05 05/01/20 00:59"
== END 2020-05-02 10:31 | disposition home or self-care (01) ==
LOC: ED 00:03 → MS2 03:58
PROVIDERS: ADMIT Internal Medicine; ATTEND Specialist
DX: F10.239 Alcohol dependence with withdrawal, unspecified (principal); K29.20 Alcoholic gastritis without bleeding; R21 Rash and other nonspecific skin eruption; E87.6 Hypokalemia; F32.9 Major depressive disorder, single episode, unspecified; Y90.1 Blood alcohol level of 20-39 mg/100 ml; Z86.718 Personal history of other venous thrombosis and embolism; Z79.899 Other long term (current) drug therapy
CPT/HCPCS: 36415; 80053; 80306; 80320; 83690; 85025; 96365; 96366; 96367; 96372; 96375; 96376; 99285; A9270; G0378; J1650; J2060; J3411; J7040; J8499; 83735; 84100

== ENCOUNTER 2020-06-11 13:37 | Emergency (ER) | payer MEDICAID ==
[2020-06-11 13:44] VITALS: BP 137/100
[2020-06-11] MEDS ORDERED: SODIUM CHLORIDE 0.9% 1,000 ML IV STA (13:48)
[2020-06-11] MEDS ORDERED: FOLIC ACID INJ 1 MG, THIAMINE INJ 100 MG, MAGNESIUM SULFATE 2 GM, MULTIVITAMIN 10 ML in... IV STA ×5 (13:57)
[2020-06-11] MEDS ORDERED: LORazepam 2 MG/ML VIAL IVP STA (13:57)
[2020-06-11] MEDS ORDERED: ONDANSETRON 4 MG/2 ML VIAL IVP STA (13:58)
--- NOTE | 2020-06-11 14:03 | ED Physician Documentation ---
History of Present Illness - Stated complaint Stated Complaint: ABD PX - Chief complaint Chief Complaint: Abd Pain - History obtained from History obtained from: Patient - History of Present Illness Timing: How many days ago (2) - Additonal information Additional information: 40-year-old male presents to the emergency department for evaluation of 2 days of epigastric and left upper quadrant abdominal pain. He has associated nausea and vomiting. He denies melena or hematochezia. He does have a history of alcohol abuse as well as opioid abuse. He reports that he has not drank for the last 2 days. Prior to that he was drinking about 1/5 of liquor a day. He is also honest that he has been using heroin and opioids at home. He was hospitalized in April of this year for alcohol withdrawal. He reports that he was able to abstain from alcohol for about 10 days after his last discharge until he started drinking again. He denies that he is taking thiamine or folate. He does have a desire to quit drinking but has a difficult time abstaining from alcohol. On exam he appears uncomfortable due to the abdominal pain. He is noted to be tachycardic and have mild tremor in the upper arms. He denies any pertinent PSH. Patient does have a history of deep vein thrombosis. He reports that he is taking Xarelto currently Review of Systems Constitutional: denies: Fever, Chills Eyes: reports: Reviewed and negative Ears: reports: Reviewed and negative Throat: reports: Reviewed and negative Cardiac: reports: Reviewed and negative GI: reports: Abdominal Pain, Nausea, Vomiting. denies: Hematemesis, Bloody / black stool : denies: Dysuria, Frequency, Hesitancy Skin: reports: Rash Musculoskeletal: reports: Reviewed and negative Neurologic: reports: Reviewed and negative Psychiatric: reports: Other (ETOH abuse) PD PAST MEDICAL HISTORY - Past Medical History Cardiovascular: None Respiratory: None Neuro: None Endocrine/Autoimmune: None GI: None : None HEENT: None Psych: Depression Musculoskeletal: None Derm: None - Past Surgical History Past Surgical History: Yes Ortho: Rotator cuff repair - Present Medications Home Medications: Ambulatory Orders Medication Instructions Recorded Confirmed Bupropion HCl [Bupropion Xl] 300 mg PO DAILY 05/01/20 05/01/20 Ibuprofen [Ibu-200] 2 - 3 tab PO Q6H PRN 05/01/20 05/01/20 LORazepam [Ativan] 1 mg PO TID PRN #9 tablet 05/02/20 Pnv No.95/Ferrous Fum/Folic AC 1 each PO DAILY #30 tablet 05/02/20 [ Formula] Thiamine [Vitamin B-1] 100 mg PO DAILY #30 tablet 05/02/20 - Allergies Allergies/Adverse Reactions: Allergies Allergy/AdvReac Type Severity Reaction Status Date / Time No Known Drug Allergies Allergy Verified 06/11/20 13:40 - Social History Does the pt smoke?: No Smoking Status: Never smoker Does the pt drink ETOH?: No Does the pt have substance abuse?: Yes - Immunizations Immunizations are current?: No - POLST Patient has POLST: No PD ED PE EXPANDED - General General: Alert, Well developed/nourished, In Pain - Cardiac Cardiac: Tachy, Regular Rhythm, Radial strong equal, Pedal strong equal, Cap refill < 2 sec. No: Murmur Present - Respiratory Respiratory: Clear to ausultation ignacia. No: Distress, Labored - Abdomen Abdomen: Normal Bowel sounds, Tender to palpation, Epigastric, LUQ (Significant tenderness epigastric and left upper quadrant. No rebound.Tenderness elicited in the lower abdomen without guarding or rebound) - Derm Derm: Normal color, Warm and dry, Rash (Diffuse papular rash of the abdomen and lower extremities. No scaling nonvesicular. There are some linear lesions and scabbing.) - Extremities Extremities: Normal - Neuro Neuro: Alert and Oriented X 3, CNII-XII intact, Normal gait, Normal finger nose, Normal speech. No: Nystagmus - GCS Eye Opening: Spontaneous Motor: Obeys Commands Verbal: Oriented Total: 15 Results - Vitals Vitals: Vital Signs - 24 hr 06/11/20 13:40 Temperature 36.5 C Heart Rate 130 H Respiratory 16 Rate Blood Pressure 137/100 H O2 Saturation 95 Oxygen O2 Source Room air - EKG (time done) 1411 Rate: Rate (enter#) (99) Rhythm: NSR Burnham: Normal Intervals: Normal MT QRS: Normal Ischemia: Normal ST segments Compare to prior EKG: Unchanged from prior EKG Computer interpretation: Agree with computer PD MEDICAL DECISION MAKING - ED course Complexity details: reviewed old records, reviewed results, re-evaluated patient, considered differential, d/w patient ED course: 40-year-old gentleman presents to the emergency department for concerns of upper abdominal pain. This is in the setting of heavy alcohol abuse as well as Xarelto that he takes for history of deep vein thrombosis. He also admits to opoid abuse and IVDU. Initially when the patient presented he was noted to be tachycardic and mildly tremulous. He admits to last drinking 2 days ago and does have a history of alcohol withdrawal. The initial plan for work-up was routine screening labs as well as IV fluids, thiamine and Ativan. The nursing staff attempted multiple times to obtain peripheral blood as well as obtain IV access and they were unsuccessful. My colleague Dr. Alicea also attempted peripheral IV access under ultrasound guidance and was not successful. I spent time speaking to the patient. We discussed that IV access and blood evaluation was necessary to facilitate his work-up and find an etiology for his abdominal pain as well as give IV medication in the setting of ETOH withdrawl. However the thought of an IV in his neck was very uncomfortable to the patient and he was concerned with "bleeding out" during the process whiel on xarelto. He expressed to this provider that he was uncomfortable with further care here at [facility]. He did have multiple phone conversations with his parents and he ultimately decided that he would leave AGAINST MEDICAL ADVICE. His plan was to go to [facility] in order to have the work-up of his abdominal pain completed. I did discuss with him that the etiology of his pain was not certain, and that he appears to be in some alcohol withdrawal and alcohol withdrawal can be deadly. We also discussed that a different facility is likely to have the same difficulties obtaining IV access as well as blood. I was unable to convince him to remain in the emergency department, he did leave AGAINST MEDICAL ADVICE. The appropriate paperwork was completed and signed Departure - Departure Disposition: 07 Against Medical Advice Clinical Impression: ETOH abuse Abdominal pain Qualifiers: Abdominal location: upper abdomen, unspecified Qualified Code(s): R10.10 - Upper abdominal pain, unspecified
[2020-06-11] MEDS ORDERED: BUFFERED LIDOCAINE 10 ML SYRINGE SUBQ STA (14:29)
[2020-06-11] MEDS ORDERED: MAG HYDROX/AL HYDROX/SIMETH 30 ML UDC PO STA (15:19)
[2020-06-11] MEDS ORDERED: HYDROmorphone 1 MG/ML CARPUJECT IM STA (15:19)
[2020-06-11] MEDS ORDERED: LIDOCAINE VISCOUS 2% 15 ML UDC MM STA (15:19)
[2020-06-11 15:43] LABS: MUDS CUTOFF CONCENTRATIONS CUTOFF CONC BELOW:
[2020-06-11 15:44] LABS: GLUCOSE, URINE (UA) NEGATIVE (NEGATIVE); KETONES,URINE (UA) NEGATIVE (NEGATIVE); LEUKOCYTE ESTERASE, URINE NEGATIVE (NEGATIVE); NITRITE,URINE POSITIVE (NEGATIVE); OCCULT BLOOD,URINE NEGATIVE (NEGATIVE); PROTEIN,URINE 30 mg/dL (NEGATIVE); UROBILINOGEN,URINE 0.2 (NORMAL) E.U./dL (NORMAL)
[2020-06-11 15:51] LABS: CLARITY,URINE CLEAR (CLEAR)
[2020-06-11 15:52] LABS: BILIRUBIN,URINE NEGATIVE (NEGATIVE); COCAINE SCREEN URINE NEGATIVE (NEGATIVE); ICTOTEST,URINE NEGATIVE; METHAMPHETAMINES SCREEN, URINE NEGATIVE (NEGATIVE); OPIATE SCREEN, URINE POSITIVE (NEGATIVE)
[2020-06-11 15:53] LABS: AMPHETAMINE SCREEN,URINE NEGATIVE (NEGATIVE); BENZODIAZEPINES SCREEN, URINE POSITIVE (NEGATIVE); METHADONE SCREEN, URINE POSITIVE (NEGATIVE); OXYCODONE SCREEN, URINE NEGATIVE (NEGATIVE); PROPOXYPHENE SCREEN, URINE NEGATIVE (NEGATIVE); TRICYCLIC ANTIDEPRESSANT,URINE NEGATIVE (NEGATIVE)
[2020-06-11 15:59] LABS: RBC,URINE 0-5 /HPF (0-5)
[2020-06-11 16:00] LABS: BACTERIA,URINE Few /HPF (None Seen); MUCUS,URINE Marked Strands; SQUAMOUS EPITHELIAL CELL,UR RARE Squamous (<= Few)
== END 2020-06-11 15:45 | disposition left against medical advice (07) ==
LOC: ED 13:37
DX: R10.12 Left upper quadrant pain (principal); R10.13 Epigastric pain; F10.10 Alcohol abuse, uncomplicated; Z79.01 Long term (current) use of anticoagulants; Z86.718 Personal history of other venous thrombosis and embolism; Z53.29 Procedure and treatment not carried out because of patient's decision for other reasons; R00.0 Tachycardia, unspecified
CPT/HCPCS: 80053; 80306; 80320; 81001; 81003; 83690; 85025; 85610; 87086; 93005; 99283; 99284

== ENCOUNTER 2021-07-20 14:54 | Emergency (ER) | payer MEDICAID ==
[2021-07-20 15:16] VITALS: BP 112/79
--- NOTE | 2021-07-20 15:52 | ED Physician Documentation ---
History of Present Illness - Stated complaint Stated Complaint: LT LEG SWELLING - Chief complaint Chief Complaint: Wound - Additonal information Additional information: 41-year-old male presents emergency department for evaluation of an injection site abscess on his left posterior thigh. Reports injecting Percocet about 5 days ago at which time he developed the redness and swelling. He has had similar in the past last time was about 1 year ago. He reports that he responded well to Bactrim. His tetanus is up-to-date. Denies any fevers or vomiting. Review of Systems Constitutional: denies: Fever, Chills Nose: reports: Reviewed and negative Throat: reports: Reviewed and negative Cardiac: reports: Reviewed and negative Respiratory: reports: Reviewed and negative GI: reports: Reviewed and negative Skin: reports: Other (abscess adn cellulitis left posterior thigh) PD PAST MEDICAL HISTORY - Past Medical History Cardiovascular: None Respiratory: None Neuro: None Endocrine/Autoimmune: None GI: None : None HEENT: None Psych: Depression Musculoskeletal: None Derm: None - Past Surgical History Past Surgical History: Yes Ortho: Rotator cuff repair - Present Medications Home Medications: Ambulatory Orders Medication Instructions Recorded Confirmed Bupropion HCl [Bupropion Xl] 300 mg PO DAILY 05/01/20 05/01/20 Ibuprofen [Ibu-200] 2 - 3 tab PO Q6H PRN 05/01/20 05/01/20 LORazepam [Ativan] 1 mg PO TID PRN #9 tablet 05/02/20 Pnv No.95/Ferrous Fum/Folic AC 1 each PO DAILY #30 tablet 05/02/20 [ Formula] Thiamine [Vitamin B-1] 100 mg PO DAILY #30 tablet 05/02/20 Sulfamethox/Trimeth 800/160 1 each PO BID #14 tablet 07/20/21 [Bactrim Ds 800/160] - Allergies Allergies/Adverse Reactions: Allergies Allergy/AdvReac Type Severity Reaction Status Date / Time No Known Drug Allergies Allergy Verified 07/20/21 15:16 - Social History Does the pt smoke?: No Smoking Status: Never smoker Does the pt drink ETOH?: No Does the pt have substance abuse?: Yes - Immunizations Immunizations are current?: No - POLST Patient has POLST: No PD ED PE NORMAL - General General: Alert and oriented X 3, No acute distress - HEENT HEENT: PERRL - Neck Neck: Supple, no meningeal sign - Cardiac Cardiac: RRR, No murmur - Respiratory Respiratory: Clear bilaterally - Derm Derm: Normal color, Warm and dry, Other (3 x 4 cm area of erythema and induration left lateral posterior thigh. There is palpable fluctuance but no drainage.) Results - Vitals Vitals: Vital Signs - 24 hr 07/20/21 15:12 Temperature 36.1 C L Heart Rate 70 Respiratory 16 Rate Blood Pressure 112/79 O2 Saturation 96 Oxygen O2 Source Room air PD MEDICAL DECISION MAKING - ED course Complexity details: re-evaluated patient, considered differential, d/w patient ED course: 41-year-old male presents emergency department for evaluation of left posterior lateral thigh abscess and cellulitis after injecting Percocet there a number of days ago. His tetanus is up-to-date. I did recommend incision and drainage of this abscess but patient feels that he would do well with antibiotics alone. Therefore prescription for Bactrim was sent to the pharmacy. Patient advised warm compress. Advised that if the infection did not resolve or worsen despite antibiotics alone then he is to return to the ER and at that time a formal incision and drainage would be completed. Departure - Departure Disposition: Home, Self Care Clinical Impression: Abscess of left thigh Condition: Stable Record reviewed to determine appropriate education?: Yes Prescriptions: Sulfamethox/Trimeth 800/160 [Bactrim Ds 800/160] 1 each PO BID #14 tablet Comments: Alexi you have and abscess and cellulitis of your left thigh/leg at the site where you injected number of days ago. I did recommend incision and drainage however you have declined that today. I have sent a prescription for some Bactrim that you are to take twice daily for the next week. This was sent to the [facility] in [place]. Please apply a warm compress over your abscess for 10 minutes 3 times a day. If despite the antibiotics and warm compress this fails to resolve, you develop fevers or have increased redness and pain in your to return to the ER and at that time an incision and drainage will be completed.
== END 2021-07-20 15:58 | disposition home or self-care (01) ==
LOC: ED 14:54
DX: L02.416 Cutaneous abscess of left lower limb (principal)
CPT/HCPCS: 99282; 99283

== ENCOUNTER 2022-05-06 18:24 | Outpatient (CLI) | payer OTHER, MEDICAID | END 2022-05-06 18:25 | disposition critical access hospital (66) | LOC: EMS 18:24 | DX: M54.2 Cervicalgia (principal); V49.49XA Driver injured in collision with other motor vehicles in traffic accident, initial encounter; Y92.413 State road as the place of occurrence of the external cause | CPT/HCPCS: A0425; A0429 ==

== ENCOUNTER 2022-05-06 18:58 | Emergency (ER) | payer OTHER, MEDICAID ==
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
[2022-05-06] MEDS ORDERED: IBUPROFEN 600 MG TABLET PO STA (20:36)
[2022-05-06] MEDS ORDERED: methocarbamoL 500 MG TABLET PO STA (20:36)
[2022-05-06] MEDS ORDERED: ACETAMINOPHEN 325 MG TABLET PO STA (20:36)
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
[2022-05-06 22:32] VITALS: BP 124/86
== END 2022-05-06 22:43 | disposition home or self-care (01) ==
LOC: EDUNIT# → ED 18:58
DX: S66.116A Strain of flexor muscle, fascia and tendon of right little finger at wrist and hand level, initial encounter (principal); S16.1XXA Strain of muscle, fascia and tendon at neck level, initial encounter; S46.911A Strain of unspecified muscle, fascia and tendon at shoulder and upper arm level, right arm, initial encounter; S29.012A Strain of muscle and tendon of back wall of thorax, initial encounter; V44.5XXA Car driver injured in collision with heavy transport vehicle or bus in traffic accident, initial encounter
CPT/HCPCS: 72125; 72128; 73030; 73140; 99282; 99284; A9270

== ENCOUNTER 2022-06-07 14:59 | Emergency (ER) | payer MEDICAID ==
[2022-06-07 15:35] VITALS: BP 121/75
--- NOTE | 2022-06-07 16:26 | ED Physician Documentation ---
PD HPI PED ILLNESS - Stated complaint Stated Complaint: SOA/COUGH/EAR PX - Chief complaint Chief Complaint: Resp - History obtained from History obtained from: Patient, Family - Additional information Additional information: Otherwise healthy gentleman got sick about 4 days ago with cough, runny nose, bilateral ear pain, poor appetite but no nausea or abdominal pain. His whole family is sick with similar symptoms and they were all exposed to RSV. Review of Systems Ten Systems: 10 systems reviewed and negative Constitutional: denies: Fever, Chills Ears: reports: Reviewed and negative Cardiac: reports: Reviewed and negative Respiratory: reports: Reviewed and negative PD PAST MEDICAL HISTORY - Past Medical History Cardiovascular: None Respiratory: None Neuro: None Endocrine/Autoimmune: None GI: None : None HEENT: None Psych: Depression Musculoskeletal: None Derm: None - Past Surgical History Past Surgical History: Yes Ortho: Rotator cuff repair - Present Medications Home Medications: Ambulatory Orders Medication Instructions Recorded Confirmed Bupropion HCl [Bupropion Xl] 300 mg PO DAILY 05/01/20 05/01/20 Ibuprofen [Ibu-200] 2 - 3 tab PO Q6H PRN 05/01/20 05/01/20 LORazepam [Ativan] 1 mg PO TID PRN #9 tablet 05/02/20 Pnv No.95/Ferrous Fum/Folic AC 1 each PO DAILY #30 tablet 05/02/20 [ Formula] Thiamine [Vitamin B-1] 100 mg PO DAILY #30 tablet 05/02/20 Sulfamethox/Trimeth 800/160 1 each PO BID #14 tablet 07/20/21 [Bactrim Ds 800/160] Ibuprofen [Motrin] 600 mg PO TID PRN #25 tab 05/06/22 tiZANidine [Zanaflex] 4 mg PO Q8H PRN #25 tablet 05/06/22 Albuterol Sulf [Ventolin Hfa 1 - 2 puffs INH Q4HR PRN #1 each 06/07/22 Inhaler] Amoxicillin 500 mg PO TID #30 cap 06/07/22 Benzonatate [Tessalon] 200 mg PO QID PRN #20 cap 06/07/22 guaiFENesin/CODEINE [Robitussin AC] 5 - 10 ml PO Q6H PRN #120 ml 06/07/22 predniSONE [Deltasone] 60 mg PO DAILY 5 Days #15 tablet 06/07/22 - Allergies Allergies/Adverse Reactions: Allergies Allergy/AdvReac Type Severity Reaction Status Date / Time No Known Drug Allergies Allergy Verified 06/07/22 15:35 - Social History Does the pt smoke?: No Smoking Status: Never smoker Does the pt drink ETOH?: No Does the pt have substance abuse?: Yes - Immunizations Immunizations are current?: No - POLST Patient has POLST: No PD ED PE NORMAL - Vitals Vital signs reviewed: Yes - General General: Alert and oriented X 3, No acute distress - HEENT HEENT: PERRL, Other (Bilateral otitis media) - Cardiac Cardiac: RRR, No murmur - Respiratory Respiratory: Other (He has moderate expiratory wheezing and some diffuse rhonchi, nonlabored and speaking in full sentences.) - Neuro Neuro: Alert and oriented X 3, Normal speech - Psych Psych: Normal mood, Normal affect Results - Vitals Vitals: Vital Signs - 24 hr 06/07/22 15:31 Temperature 36.0 C L Heart Rate 56 L Respiratory 16 Rate Blood Pressure 121/75 O2 Saturation 94 Oxygen O2 Source Room air Departure - Departure Disposition: 01 Home, Self Care Clinical Impression: Viral URI with cough Bilateral otitis media Qualifiers: Otitis media type: suppurative Chronicity: acute Recurrence: non-recurrent Spontaneous tympanic membrane rupture: without spontaneous rupture Qualified Code(s): H66.003 - Acute suppurative otitis media without spontaneous rupture of ear drum, bilateral Condition: Good Record reviewed to determine appropriate education?: Yes Instructions: ED Viral Syndrome Prescriptions: Albuterol Sulf [Ventolin Hfa Inhaler] 1 - 2 puffs INH Q4HR PRN #1 each PRN Reason: Shortness Of Air/Wheezing Amoxicillin 500 mg PO TID #30 cap predniSONE [Deltasone] 60 mg PO DAILY 5 Days #15 tablet guaiFENesin/CODEINE [Robitussin AC] 5 - 10 ml PO Q6H PRN #120 ml PRN Reason: Cough Benzonatate [Tessalon] 200 mg PO QID PRN #20 cap PRN Reason: Cough Comments: Given that you are wheezing it would be hoskins to do an inhaler plus some steroids, I am also prescribing some medications for the cough and antibiotics for the ear infections. Return for new or worsening symptoms. Follow-up with your primary care physician on Jules if not better. I sent your prescriptions electronically to [facility] in [place].
== END 2022-06-07 16:41 | disposition home or self-care (01) ==
LOC: ED 14:59
DX: J06.9 Acute upper respiratory infection, unspecified (principal); H66.003 Acute suppurative otitis media without spontaneous rupture of ear drum, bilateral
CPT/HCPCS: 99282; 99284